=== PATIENT | female | born 1975 | race Caucasian/White ===

== ENCOUNTER 2019-05-08 17:16 | Inpatient (IN) | payer MEDICAID ==
[~2019-05-08] VITALS: Ht 154.9 cm; Wt 78.0 kg
[~2019-05-08 17:16] MED LIST: PREN-93 PO
--- NOTE | 2019-05-08 17:18 | NSTRPT ---
NST Information Datetime Report Generated by CPN: 05/08/2019 17:18 Datetime: 05/02/2019 10:00 NST Information EGA: 39.0 Time on Monitor: 05/02/2019 10:34 Time off Monitor: 05/02/2019 11:15 NST Duration (Min): 41 Test and Monitor Explained: Monitor Explained; Test Explained; Verbalized Understanding Pulse: 86 Resp: 18 SBP: 119 DBP: 77 Test Evaluation NST Interventions: Reposition Patient Patient States Movement: Present Contraction Frequency: NONE FHR Baseline : 150 Variability: Moderate 6-25bpm Accelerations: 15X15 Decelerations: None FHR Category: Category I NST Results: Reactive Comments: PT TO U/S. JAXON 11.9cm. CEPHALIC. Strip reviewed by Dr. Mota before discharge. Electronically Signed By E-Signature: with User ID: [id number] Datetime: 04/26/2019 10:18 NST Information EGA: 38.1 NST Duration (Min): 42 Datetime: 04/19/2019 14:14 NST Information EGA: 37.1 NST Duration (Min): 47 Datetime: 04/13/2019 15:16 NST Information EGA: 36.2 Datetime: 04/13/2019 15:10 NST Duration (Min): 54
[2019-05-08 17:28] VITALS: Ht 154.9 cm; Wt 78.0 kg
[2019-05-08] MEDS ORDERED: CARBOPROST 250 MCG INJ IM PRN ×2 (18:30→21:30)
[2019-05-08] MEDS ORDERED: OXYTOCIN 30 UNITS/LR 500 ML IV PRN ×2 (18:30→21:30)
[2019-05-08] MEDS ORDERED: OXYTOCIN 30 UNITS/LR 500 ML IV SCH ×3 (18:30→21:07)
[2019-05-08] MEDS ORDERED: LIDOCAINE 1% (MPF) 30 ML INJ INJ PRN (18:30)
[2019-05-08] MEDS ORDERED: METHYLERGONOVINE 0.2 MG INJ IM PRN ×2 (18:30→21:30)
[2019-05-08] MEDS ORDERED: BUTORPHANOL 2 MG INJ IV PRN (18:30)
[2019-05-08] MEDS ORDERED: MISOPROSTOL 200 MCG TAB PR PRN ×2 (18:30→21:30)
[2019-05-08] MEDS: LACTATED RINGER'S 1,000 ML IV SCH ×2 (19:00→19:34)
--- NOTE | 2019-05-08 19:39 | PREAC ---
Date/Time of Note Date/Time of Note DATE: 05/08/19 TIME: 19:38 Anesthesia Eval and Record Evaluation Time Pre-Procedure Interview DATE: 05/08/19 TIME: 19:38 Age 44 Sex female NPO: 8 hrs Preoperative diagnosis labor Planned procedure epidural Past Medical History Past Medical History: None Surgery & Anesthesia Issues No known issue Meds Anticoagulation: No Beta Gio within 24 hr: No Reason Beta Gio not given: Pt. not on B-Gio Reported Medications Vit No.124/Iron/FA ( Vitamin Tablet) 1 Each Tablet, 1 EACH PO, TAB 05/08/19 Current Medications Lactated Ringer's 1,000 ml @ 125 mls/hr Q8H IV Last administered on 05/08/19at 19:34; Admin Dose 125 MLS/HR; Start 05/08/19 at 18:30 Butorphanol Tartrate (Stadol) 2 mg Q2H PRN IV .PAIN SCALE 6-10; Start 05/08/19 at 18:30 Lidocaine (Xylocaine 1% (Mpf)) 30 ml ONCE PRN INJ .EPISIOTOMY; Start 05/08/19 at 18:30 Oxytocin/Lactated Ringer's 500 ml @ 500 mls/hr ONCE POST IV ; Start 05/08/19 at 18:30 Oxytocin/Lactated Ringer's 500 ml @ 125 mls/hr POST IV ; Start 05/08/19 at 18:30 Oxytocin/Lactated Ringer's 500 ml @ 0 mls/hr ONCE PRN IV .VAGINAL BLEEDING; Start 05/08/19 at 18:30 Methylergonovine Maleate (Methergine) 0.2 mg ONCE PRN IM .VAGINAL BLEEDING; S tart 05/08/19 at 18:30 Carboprost Tromethamine (Hemabate) 250 mcg ONCE PRN IM .VAGINAL BLEEDING; Start 05/08/19 at 18:30 Misoprostol (Cytotec) 1,000 mcg ONCE PRN AL .VAGINAL BLEEDING; Start 05/08/19 at 18:30 Meds reviewed: Yes Allergies Coded Allergies: No Known Allergy (Unverified , 05/08/19) Allergies Reviewed: Yes Labs/Studies Labs Reviewed: Reviewed by anesthesiologist Result Diagram: 05/08/19 1845 Laboratory Tests 05/08/19 18:45 test: N/A Pre-procedure Exam Airway: Adequate mouth opening, Adequate thyromental dist Mallampati: Mallampati IV Teeth: Normal Lung: Normal Heart: Normal ASA Physical Status ASA physical status: 2 Emergency: None Pre-operative Attestations Prior to commencing anesthesia and surgery, the patient was re-evaluated, there was verification of: *The patient's identity *The results of appropriate recent lab work and preoperative vital signs *The above evaluation not changing prior to induction *Anesthetic plan, risk benefits, alternative and complications discussed with patient/family; questions answered; patient/family understands, accepts and wishes to proceed. NATASHA AMAYA DO May 08, 2019 19:39
[2019-05-08] MEDS ORDERED: FENTAnyl 2MCG/ML-ROPIV 0.2% 100 ML ONE (19:42)
[2019-05-08] MEDS ORDERED: FENTAnyl 50 MCG/ML VIAL ONE (19:42)
--- NOTE | 2019-05-08 20:12 | PAC ---
Date/Time of Note Date/Time of Note DATE: 05/08/19 TIME: 20:12 Post-Anesthesia Notes Post-Anesthesia Note Activity: WNL Respiratory function: WNL Cardiovascular function: WNL Mental status: Baseline Pain reasonably controlled: Yes Hydration appropriate: Yes Nausea/Vomiting absent: Yes NATASHA AMAYA DO May 08, 2019 20:12
[2019-05-08] MEDS ORDERED: NALOXONE (0.4 MG/ML) INJ IV PRN (20:30)
[2019-05-08] MEDS ORDERED: FENTAnyl 2MCG/ML-ROPIV 0.2% 100 ML BAG EPI SCH (20:30)
--- NOTE | 2019-05-08 21:07 | LDN ---
Date/Time of Note Date/Time of Note DATE: 05/08/19 TIME: 21:06 Delivery Summary Weeks of Gestation 39 Placenta Delivered: Spontaneously Meconium: none Laceration repair: 1st degree perineal laceration repair with 2-0 and 4-0 chromic Anesthesia type: Epidural Estimated blood loss: 200 Sponge & Needle done & correct: Yes All needle counts correct: Yes Any foreign bodies felt in the: No Delivery Information Sex Infant Sex: male Apgars 1 Minute: 9 5 Minute: 9 Suctioning Nose & mouth suctioned at leo: No Delee suction performed: No Umbilical Cord Umbilical cord with: 3 Vessels Cord presentations: nuchal cord Nuchal cord present X: 1 Cord Blood was obtained: Yes SHARRI CHOWDHURY MD May 08, 2019 21:07
--- NOTE | 2019-05-08 21:29 | PREOPHP ---
DATE OF ADMISSION: 05/08/2019 HISTORY OF PRESENT ILLNESS: Ms. Annabelle Newell a 44-year-old 3, para 2, EDC 05/09/2019, intrauterine at 39 weeks and 6 days' gestational age, presented to triage in active labor. She reports of having uterine contractions since early this morning. She denies any vaginal bleedin g or discharge. Her care took place at [facility]. PAST MEDICAL HISTORY: None. MEDICATIONS: vitamins. PAST SURGICAL HISTORY: None. OBSTETRICAL HISTORY: x2 vaginal delivery. GYNECOLOGIC HISTORY: 12, regular 3 to 4 days. Denies any sexually transmitted infections. Sexually active with 1 partner. SOCIAL HISTORY: Denies any smoking, drugs, or alcohol. FAMILY HISTORY: None. REVIEW OF SYSTEMS: All within normal except history of present illness. PHYSICAL EXAMINATION: HEENT: Within normal. LUNGS: CTA bilateral. CARDIOVASCULAR: S1, S2, regular rhythm. ABDOMEN: Gravid, nontender. Negative CVA bilateral. EXTREMITIES: Negative edema. No calf tenderness. PELVIC: Vaginal exam on admission 4 to 5 cm dilated, 80% effaced, -2 station. heart tracing c ategory 1. Tocometer regular contractions. ASSESSMENT: Intrauterine at term in labor. PLAN: Anticipate vaginal delivery. Dictated By: SHARRI LIGHT/ARON Conf#: [id number] DID#: [id number]
[2019-05-08] MEDS ORDERED: ONDANSETRON 4 MG INJ IV PRN (21:30)
[2019-05-08] MEDS ORDERED: NACL 0.9% 3 ML SYG IV SCH (21:30)
[2019-05-08] MEDS ORDERED: ACETAMINOPHEN 325 MG TAB PO PRN (21:30)
[2019-05-08] MEDS ORDERED: OXYCODONE/ASPIRIN (4.88/325) TAB PO PRN ×2 (21:30)
[2019-05-08] MEDS ORDERED: BENZOCAINE 20% 56 ML SPRAY TOP PRN (21:30)
[2019-05-08] MEDS ORDERED: WITCH HAZEL/GLYCERIN PAD PR PRN (21:30)
[2019-05-08] MEDS ORDERED: LANOLIN HPA 1 PKT TOP PRN (21:30)
[2019-05-08 22:40] VITALS: BP 129/71; PULSE 82; RESP 18
[2019-05-09 04:00] VITALS: BP 104/68; PULSE 85; RESP 19
[2019-05-09] MEDS: IBUPROFEN 600 MG TAB PO SCH ×5 (05:40→23:54)
--- NOTE | 2019-05-09 07:41 | PD.PPDC ---
CRUMB PACKER Discharge Instruction Condition [id number] Patient Condition: Wqlhs2d Fair Diet [id number] Diet: Telzi4n Resume Regular Diet Activity/Restrictions [id number] Activity: Lqohd6y Normal Activity May Shower [id number] Restrictions: [id number] No Exercising No Lifting No Driving No Sexual Activity Nothing in the Vagina No [place] No Tampons, douche Follow-up Follow-up with Physician: 2, 3, Week/Weeks Return to clinic for Sawdw2Au CREAM TESTER Instructions: Hgnsv1a Fever greater than 101 Chills Worsening abdominal pain Excessive Vaginal Bleeding More than 2 pads per hour Unable to tolerate diet [id number] OB Instructions: Dkbrv3m Breast Tenderness Depression Blurried Vision Headache Rgfej2Lc Surgical Instructions: Znzkq8e Incisional Drainage Incisional Redness SHARRI CHOWDHURY MD May 09, 2019 07:41
--- NOTE | 2019-05-09 07:43 | DS ---
Date/Time of Note Date/Time of Note DATE: 05/09/19 TIME: 07:42 Obstetrical Discharge Record Final Diagnosis Final Diagnosis: Term delivered Vaginal Delivery Obstetrical Delivery: Spontaneous Condition on Discharge Physical Assessment Last Vitals: stable afebrile Voiding: Yes Bowel Movement: Yes Breast: Soft, non-tender, Filling Fundus: Firm Abdomen and Incision: soft nt Calf Tenderness: No Patient Condition: Fair SHARRI CHOWDHURY MD May 09, 2019 07:43
[2019-05-09 07:50] VITALS: BP 113/69; PULSE 83; RESP 16
[2019-05-09] MEDS: SENNA/DOCUSATE NA (8.6MG/50MG) TAB PO SCH ×2 (08:55→21:00)
[2019-05-09 16:00] VITALS: BP 110/61; PULSE 81; RESP 16
[2019-05-09 20:00] VITALS: BP 116/66; PULSE 90; RESP 17
--- NOTE | 2019-05-09 22:11 | DELSUM ---
Delivery Summary A-C Datetime Report Generated by CPN: 05/09/2019 22:11 DELIVERY PERSONNEL Carpentry Teacher: Canuto, Debora MATERNAL INFORMATION Delivery Anesthesia: Epidural Medications in Delivery: LR WITH 30 UNITS OF PITOCIN Delivery QBL (ml): 200 Placenta Cultured: No Maternal Complications: None LABOR SUMMARY EDC: 05/09/2019 00:00 No. Babies in Womb: 1 Attempted: No Labor Anesthesia: Epidural LABOR INFORMATION Reason for Induction: Not Applicable Onset of Labor: 05/08/2019 13:00 Complete Dilatation: 05/08/2019 20:31 Oxytocin: N/A Group B Beta Strep: Negative Antibiotics # of Doses: 0 Steroids Given: None Reason Steroids Not Administered: Not Applicable MEMBRANES Membranes Rupture Method: Spontaneous Rupture of Membranes: 05/08/2019 19:25 Length of Rupture (hr): 1.43 Amniotic Fluid Color: Clear Amniotic Fluid Amount: Moderate Amniotic Fluid Odor: Normal STAGES OF LABOR Stage 1 hr: 7 Stage 1 min: 31 Stage 2 hr: 0 Stage 2 min: 20 Stage 3 hr: 0 Stage 3 min: 2 Total Time in Labor hr: 7 Total Time in Labor min: 53 VAGINAL DELIVERY Episiotomy: None Laceration Extension: First Degree Laceration Type: Perineal Laceration Repair: Yes Initial Vag Sponge Count: 10 Final Vag Sponge Count: 10 Initial Vag Sharps Count: 1 Final Vag Sharps Count: 3 Sponge Count Correct: Yes Sharps Count Correct: Yes BABY A INFORMATION Delivery Date/Time: 05/08/2019 20:51 Method of Delivery: Vaginal Born in Route : No : N/A Forceps: N/A Vacuum Extraction: N/A Shoulder Dystocia : No SHOULDER DYSTOCIA BABY A Infant Delivery Date/Time: 05/08/2019 20:51 PRESENTATION/POSITION BABY A Presentation: Cephalic Cephalic Presentation: Vertex Vertex Position: Left Occipital Anterior Breech Presentation: N/A PLACENTA INFORMATION BABY A Placenta Delivery Time : 05/08/2019 20:53 Placenta Method of Delivery: Spontaneous Placenta Status: Delivered SCORES BABY A Heart Rate 1 min: >100 bpm Resp Effort 1 min: Good Cry Reflex Irritability 1 min: Cough/Sneeze/Pulls Away Muscle Tone 1 min: Active Motion Color 1 min: Body [place], Extremit Blue Resuscitation Effort 1 min: Tactile Stimulation SCORE 1 MIN: 9 Heart Rate 5 min: >100 bpm Resp Effort 5 min: Good Cry Reflex Irritability 5 min: Cough/Sneeze/Pulls Away Muscle Tone 5 min: Active Motion Color 5 min: Body [place], Extremit Blue Resuscitation Effort 5 min: Tactile Stimulation SCORE 5 MIN: 9 INFANT INFORMATION BABY A Gestational Age at Delivery: 39.6 Gestational Status: Full Term- 39- 40.6 Weeks Infant Outcome : Liveborn, with signs of life Infant Condition : Stable Infant Sex: Male IDENTIFICATION/MEDS BABY A ID Band Number: [id number] ID Band Location: Right Arm; Left Leg Sensor Applied: Yes Sensor Number: [id number] Sensor Location : Cord Clamp Vitamin K Given : Not Given Erythromycin Given: Not Given WEIGHT/LENGTH BABY A Infant Birthweight (gm): 3030 Weight (lb): 6 Infant Weight (oz): 11 Length (in): 20.00 Infant Length (cm): 50.80 CORD INFORMATION BABY A No. Cord Vessels: 3 Nuchal Cord : Around Neck x1, Loose Cord Blood Taken: Yes Suction: Mouth; Nose ASSESSMENT BABY A Complications: None Physical Findings at Delivery: Within Normal Limits Infant Respirations: Appears Normal Masonry Contractor Administrator/ALS Called : No Infant Care By: Garima Nicole Transferred To: Remains with Mother
[2019-05-10 04:00] VITALS: BP 119/75; PULSE 88; RESP 17
[2019-05-10] MEDS: IBUPROFEN 600 MG TAB PO SCH ×3 (06:22→17:30)
[2019-05-10 08:10] VITALS: BP 123/69; PULSE 80; RESP 17
[2019-05-10] MEDS: SENNA/DOCUSATE NA (8.6MG/50MG) TAB PO SCH (09:10)
[2019-05-10 16:00] VITALS: BP 110/67; PULSE 77; RESP 18
== END 2019-05-10 18:00 | disposition home or self-care (01) | DRG 807 ==
LOC: L-D 17:16 → OBT 17:16 → L-D 17:25 → MS1 22:10
PROVIDERS: ADMIT Obstetrics & Gynecology; ATTEND Obstetrics & Gynecology
PROC: 10E0XZZ Delivery of Products of Conception, External Approach (ICD-10-PCS; principal; 2019-05-08)
PROC: 0HQ9XZZ Repair Perineum Skin, External Approach (ICD-10-PCS; 2019-05-08)
DX: O70.0 First degree perineal laceration during delivery (principal); Z37.0 Single live birth; Z3A.39 39 weeks gestation of pregnancy; O69.81X0 Labor and delivery complicated by cord around neck, without compression, not applicable or unspecified
CPT/HCPCS: 62322; 85025; 85610; 85730; 86592; 86850; 86900; 86901; 87340; G0463; J2590; J3010; J7120